=== PATIENT | female | born 1950 | race Caucasian/White ===

== ENCOUNTER 2022-07-28 18:18 | Emergency (ER) | payer OTHER ==
[~2022-07-28] VITALS: Ht 170.2 cm; Wt 82.6 kg
[~2022-07-28 18:18] MED LIST: CANA300T PO; CILO50TA PO; DILT60TA3 PO; FLEC50TA2 PO; FLUT1DIS5 INH; GLIP10TA11 PO; GLU500 PO; INSU100I24 SQ; LEVO500T20 PO; LINA5TAB2 PO; LIRA0.6P SQ; LOVA10TA55 PO; MESA4ENE4 RC; METH4TAB3 PO; METO25TA3 PO; PRO40 PO; TRAM50TA92 PO; VALS320T2 PO; XOP.63 INH
[2022-07-28 18:29] VITALS: BP_SYST 134
--- NOTE | 2022-07-28 18:32 | NUR ---
Patient to ER bed H1 to gown for evaluation. Side rails up. Report given to ROME RAMOS.
--- NOTE | 2022-07-28 18:34 | NUR ---
Patient came from home with c/o left foot pain 05/03. Pt states the pain started Sunday am. Pt had foot xrayed and ultrasound to lower leg were unremarkable. Pt sent home with antibiotics and pain medication. Symptoms have not improved and patient is concerned. Pt has hx of cardiac conditions, htn, diabetes and GERD. A&Ox4, calm and cooperative, VSS. Care to be provided as ordered.
--- NOTE | 2022-07-28 18:39 | NUR ---
ER Dr. Hanna at bedside examining patient.
[2022-07-28 18:52] LABS: BASOPHILS % (AUTO) 0.4 % (0.0-2.0); EOSINOPHILS # (AUTO) 0.1 K/uL (0.0-0.4); EOSINOPHILS % (AUTO) 1.8 % (0.0-4.0); HEMATOCRIT 31.3 % (36-48); HEMOGLOBIN 10.8 g/dL (12.0-16.0); LYMPHOCYTES # (AUTO) 1.9 K/uL (1.0-5.5); LYMPHOCYTES % (AUTO) 26.2 % (20.5-51.5); MEAN CORPUSCULAR HEMOGLOBIN 29 pg (27-31); MEAN CORPUSCULAR HGB CONC 35 % (32-36); MEAN CORPUSCULAR VOLUME 85 fL (79.0-98.0); MONOCYTES # (AUTO) 0.7 K/uL (0.0-1.0); MONOCYTES % (AUTO) 9.4 % (1.7-9.3); NEUTROPHILS # (AUTO) 4.4 K/uL (1.8-7.7); NEUTROPHILS % (AUTO) 62.2 % (40.0-70.0); PLATELET COUNT (AUTO) 312 K/uL (130-430); RED BLOOD CELL COUNT(AUTO) 3.69 MIL/uL (4.2-6.2); RED CELL DISTRIBUTION WIDTH 13.3 % (9.0-15.0); WHITE BLOOD COUNT (AUTO) 7.1 K/uL (4.8-10.8)
[2022-07-28 19:03] LABS: ANION GAP 6 (5-15); CALCIUM 9.2 mg/dL (8.4-11.0); CHLORIDE 99 mmol/L (98-107); GLUCOSE 142 mg/dL (70-99); UREA NITROGEN, BLOOD 15 mg/dL (8-21)
[2022-07-28 19:09] LABS: ALANINE AMINOTRANSFERASE 116 U/L (12-78); ASPARTATE AMINOTRANSFERASE 62 U/L (10-37); TOTAL BILIRUBIN 0.5 mg/dL (0.0-1.0)
--- NOTE | 2022-07-28 19:27 | NUR ---
Pt in bed resting with no s/s of distress. at bedside. Pt A&Ox4. Pt has right foot redness and inflammation. Bed in lowest position.
[2022-07-28 19:33] LABS: C-REACTIVE PROTEIN QUANT 19.4 mg/dL (0-0.5)
[2022-07-28] MEDS ORDERED: CLINDAMYCIN 900 mg/50mL D5W 50 ML IV ONE (21:45)
[2022-07-28] MEDS ORDERED: cefTRIAXone 1 GM in D5W 50 ML IV ONE (21:45)
--- NOTE | 2022-07-28 21:51 | NUR ---
# 20 gauge angiocath placed to right ac. Use of asceptic technique. Opsite placed over site. Blood return noted. Flushed with 10 cc of normal saline. No evidence of infiltration noted. Patient tolerated well.
[2022-07-28] MEDS ORDERED: cefTRIAXone 1 GM VIAL ONE (21:57)
[2022-07-28] MEDS ORDERED: CLE150 PO (22:11)
[2022-07-28] MEDS ORDERED: ACET12.55 PO (22:11)
--- NOTE | 2022-07-28 22:21 | NUR ---
Patient given written and verbal discharge instructions and verbalizes understanding. ER MD discussed with patient the results and treatment provided. Patient in stable condition. ID arm band removed. IV catheter removed intact and dressing applied, no active bleeding. Rx of Cleocin and Dennison given. Patient educated on pain management and to follow up with PMD. Pain Scale 0/10. Opportunity for questions provided and answered. Medication side effect fact sheet provided.
[2022-07-28 22:22] VITALS: BP_SYST 127
== END 2022-07-28 22:22 | disposition home or self-care (01) ==
LOC: SED 18:18
DX: L03.115 Cellulitis of right lower limb (principal); R22.41 Localized swelling, mass and lump, right lower limb; K21.9 Gastro-esophageal reflux disease without esophagitis; E11.9 Type 2 diabetes mellitus without complications; I10 Essential (primary) hypertension; Z88.2 Allergy status to sulfonamides; Z88.8 Allergy status to other drugs, medicaments and biological substances; Z79.4 Long term (current) use of insulin; Z79.899 Other long term (current) drug therapy
CPT/HCPCS: 99284; 96365; 80053; 85025; 86140; 36415; 73630; 96368; 83605; J0696; J3490